=== PATIENT | female | born 1940 | race Caucasian/White ===

== ENCOUNTER 2018-10-06 06:29 | Inpatient (IN) | payer BC ==
[2018-09-18 08:53] LABS: ABSOLUTE BASOPHILS 0.1 thou/uL (0.0-0.2); ABSOLUTE EOSINOPHILS 0.2 thou/uL (0.0-0.7); ABSOLUTE LYMPHOCYTES 1.7 thou/uL (0.8-5.3); ABSOLUTE MONOCYTES 0.7 thou/uL (0.0-1.2); ABSOLUTE NEUTROPHILS 4.4 thou/uL (1.6-8.1); BASOPHILS 0.8 %; EOSINOPHILS 2.4 %; HEMATOCRIT 41.8 % (37.0-47.0); HEMOGLOBIN 14.5 gm/dL (12.0-15.0); LYMPHOCYTES 23.9 %; MCH 31.6 pg (26.0-34.0); MCHC 34.8 g/dL (28.0-37.0); MONOCYTES 10.2 %; MPV 9.6 fl. (7.2-11.1); NUCLEATED RBCS 0 /100WBC; PLATELET COUNT* 196 thou/uL (150-400); POLYS 62.7 %; RBC 4.59 mil/uL (4.20-5.00); RDW-CV 12.9 % (10.5-14.5)
[2018-09-18 09:04] LABS: APTT 25.9 Seconds (25.0-31.3); PROTIME 9.8 Seconds (9.20-11.50)
[2018-09-18 09:07] LABS: ALBUMIN 3.3 g/dL (3.4-5.0); CALCIUM 8.8 mg/dL (8.5-10.1); CREATININE 0.8 mg/dL (0.6-1.3); POTASSIUM 4.2 mmol/L (3.5-5.1); TOTAL BILIRUBIN 0.6 mg/dL (<0.1-1.0); TOTAL PROTEIN 7.1 g/dL (6.4-8.2)
[2018-09-18 11:22] LABS: ESR (SEDRATE) 15 mm/hr (0-30)
--- NOTE | 2018-09-18 14:04 | EKG ---
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: : 1940 Requested By: Eduardo Dee Order Number: [id number] Reading MD: Jadon Oswald Measurements Intervals Bourg Rate: 79 P: 69 NH: 166 QRS: -56 QRSD: 126 T: 26 QT: 381 QTc: 437 Interpretive Statements Sinus rhythm Probable left atrial enlargement Right bundle branch block No previous ECG available for comparison Electronically Signed On 09-18-2018 14:04:14 CDT by Jadon Oswald [email or web address] <ELECTRONICALLY SIGNED> By: Jadon Oswald MD, [facility] 09/18/18 1404 0914 09 Jadon Oswald MD, FACC /EPI
[2018-09-19 10:10] LABS: GLYCOHEMOGLOBIN (HGB A1C) 5.6 % (4.8-5.6)
[~2018-10-06] VITALS: Ht 165.1 cm; Wt 89.4 kg
--- NOTE | ~2018-10-06 | OP ---
[address] [address] OPERATIVE REPORT Name: MARKJJ J Room: [address] IN .R.#: [id number] Admission: 10/06/18 Attend Phys: Everardo Marsh Discharge: Date of : 42 Report #: [id number] THIS REPORT FOR: //name// CC: Adeel Francisco DICTATED BY: Eduardo Dee DO, DATE OF SERVICE: 10/06/2018 PREOPERATIVE DIAGNOSIS: Advanced degenerative joint disease, right knee. POSTOPERATIVE DIAGNOSIS: Advanced degenerative joint disease, right knee. PROCEDURE: Right total knee arthroplasty. SURGEON: Eduardo Dee DO RATTAN WORKER: Richard Sutton DO SECOND REHABILITATION SPECIALIST: Erasmo Vaca DO ESTIMATED BLOOD LOSS: 100 mL. ANTIBIOTICS: Ancef 2 grams IV preoperatively. TOURNIQUET TIME: Approximately 1 hour. COMPLICATIONS: None. DRAINS: None. ANESTHESIA: General. CONDITION OF PATIENT: Stable to PACU. ORTHOPEDIC IMPLANTS: Renetta total knee arthroplasty system: 1. Size 7 narrow cruciate-retaining femur. 2. Size D tibial baseplate. 3. An 11 mm medial congruent polyethylene spacer. 4. A 32 mm 3 peg patella. 5. Two bags of Palacos bone cement plain. CONDITION: The patient is stable to PACU. INDICATIONS FOR PROCEDURE: The patient is a very pleasant 78-year-old female [address] [address] OPERATIVE REPORT Name: JJ FLORES Room: [address] IN [facility]#: [id number] Admission: 10/06/18 Attend Phys: Everardo Marsh Discharge: Date of : 42 Report #: [id number] seen in my clinic regarding right knee pain she had for many years. She unfortunately failed conservative treatment including anti-inflammatory medications, activity modification. X-rays were obtained consistent with end-stage degenerative joint disease with correctable varus deformity. This was consistent with her exam. Due to failed conservative treatment, I discussed potential benefit of right total knee arthroplasty. I discussed the procedure, risks, benefits, complications and indications in detail with her. Risks discussed include but not limited to infection, neurovascular injury, continued or worsening pain, no improvement in symptoms, hardware failure, fracture, arthrofibrosis, need for further surgery, DVT, PE, and/or anesthesia complications. She did express understanding and wished to proceed with surgery. DESCRIPTION OF PROCEDURE: After consent was obtained, the patient was taken to the operative suite and placed in the supine position on the operating room table. She was given benefit of general anesthesia. A well-padded tourniquet was placed over the right upper thigh. Right leg was sterilely prepped and draped in usual fashion. Preoperative timeout was obtained to confirm the correct patient, procedure and operative site. Surgery began with inflation of the tourniquet to 300 mmHg. Standard anterior knee midline incision was made. Sharp dissection was taken down to the level of the capsule. A new knife was used and a medial parapatellar arthrotomy was performed. The patella was everted. She had a normal appearing joint effusion. She had severely eburnated bone throughout all 3 compartments with osteophytes throughout. At this time, a femoral drill was used to open the femoral canal. Hohmann retractors were placed throughout the procedure to protect the medial and lateral collateral ligaments. The T-handle and intramedullary perez were placed measuring 5-degree valgus cut. Extraocular 2 mm cut was taken due to preoperative extension lag. Distal femoral cut was made through the captured block. At this time, the external tibial guide was utilized and 10 mm were measured off the high lateral side with the stylus. The proximal tibial cut was then made to the captured block. Knee was taken through extension, 10 block was used to ensure adequate resection. The knee was again flexed. AP sizer was placed on the distal femur, it was measured a size 7. Two army helicopter pilot holes were drilled in 3 degrees of external rotation. The size 7, 4-in-1 cutting block was then pinned in place. Anterior and posterior condylar cuts as well as chamfer cuts were then made. Posterior osteophytes were removed with a curved osteotome and rongeur. The FAR retractor was placed, proximal tibia was then exposed. This measured a size D. The size D tibial trial was pinned in place, basing rotation off the medial third of the tibial tubercle and middle of the talus. The trial femur was placed. A size 10 spacer was placed. Knee was taken through range of motion. She had full flexion and extension with stable varus and valgus testing with equal flexion and extension gaps. The patella was everted. Posterior patellar cut was made using freehand technique. This measured size 32. Three peg holes drilled, size 32 button [place] [address] OPERATIVE REPORT Name: JJ FLORES Room: 150-1 [facility] IN [facility].#: [id number] Admission: 10/06/18 Attend Phys: Everardo Marsh Discharge: Date of : 42 Report #: [id number] taken through range of motion. The patella did track well. At this time, the trial femur and spacer were removed. The proximal tibia was opened with the drill and the punch. All trial components were removed. The knee was then thoroughly irrigated with pulsatile lavage and dried with a clean lap sponge. The final components were opened, cement was mixed, placed on the final components and exposed bone. The components were then impacted into place. Excess cement was removed. A size 12 spacer was placed. Knee was taken through extension. Axial compression was applied until the cement hardened. Once the cement hardened, trial reduction was again performed and a final size 11 spacer was chosen. This was placed on a clean tibial tray, locked in place, audible click was heard. The knee was taken through final range of motion. She had full flexion and extension with stable varus and valgus testing with equal flexion and extension gaps and good patellar tracking. The tourniquet was deflated at approximately 1 hour. Hemostasis achieved with electrocautery and direct pressure. Knee was thoroughly irrigated with pulsatile lavage, dried with clean lap sponge. The capsule was then closed with a #1 Vicryl in a [id number] fashion. Knee was again thoroughly irrigated. Subcutaneous tissue was closed with 2-0 Vicryl in an inverted interrupted fashion followed by running Monocryl stitch on the skin. This covered with Dermabond, which was allowed to dried and sterile dressing was applied. She did tolerate the procedure well without complications. She was taken to recovery room in stable condition. All needle and sponge counts correct x 2 at the end of the procedure. She will be admitted postoperatively for pain control and physical therapy. We will give appropriate DVT prophylaxis and analgesia p.r.n. I expect 2 midnight stay. By: [id number] Donis Dee DO /nt
[~2018-10-06 06:29] MED LIST: MULTIVITAMINS1 EAC7 PO; NOHOMEMEDICATIONS; NORCO 5-325 TA1 EACH PO; TRAMADOL 50 MG50 MG PO
[2018-10-06] MEDS ORDERED: LASIX 40 MG TAB40 M2 PO (07:18)
[2018-10-06 07:20] VITALS: BP 154/99
--- NOTE | 2018-10-06 12:45 | NUR ---
PATIENT TO ROOM 114 FROM SURGERY PER BED AFTER RT TOTAL KNEE REPLACEMENT. POLAR PACK IN PLACE. IV NOTED WNL. NO FLUIDS AT THIS TIME. REPORT REC'D, PER SURGERY STAFF, STATES NOTED LS CRACKLES, FLUIDS STOPPED IN PACU. WILL MONITOR. JOSÉ MIGUEL POX PLACED. O2 2L/NC. FRIEND OF PATIENT PRESENT. PATIENT NOTED SLEEPY, RESPONDS TO VERBAL/TOUCH STIM. RATES SURGICAL SITE PAIN AT 5-6/10 AT THIS TIME. LS NOTED DIM IN BASES, RESPS EVEN AND UNLABORED. +CDB. INC SPIR EDUCATION DONE, +RETURN DEMO. HOB UP TO PATIENT COMFORT. PATIENT ENC TO REST AT THIS TIME. ~TJRN
--- NOTE | 2018-10-06 15:30 | NUR ---
UP IN RECLINER W/ ASST OF PHYSICAL THERAPY. BLE ELEVATED. POLAR PACK IN PLACE. DENIES NEEDS AT THIS TIME. CALM. ~TJRN
[2018-10-06 19:30] VITALS: BP 129/68
[2018-10-07] VITALS (7 sets, daily range): BP systolic 105–161; BP diastolic 58–77
[2018-10-07 03:33] LABS: ABSOLUTE LYMPHOCYTES 1.2 thou/uL (0.8-5.3); ABSOLUTE MONOCYTES 1.1 thou/uL (0.0-1.2); BASOPHILS 0.2 %; HEMATOCRIT 36.5 % (37.0-47.0); HEMOGLOBIN 12.3 gm/dL (12.0-15.0); LYMPHOCYTES 9.3 %; MCH 30.8 pg (26.0-34.0); MCHC 33.6 g/dL (28.0-37.0); MCV 91.8 fL (80.0-100.0); MPV 10.7 fl. (7.2-11.1); NUCLEATED RBCS 0 /100WBC; PLATELET COUNT* 176 thou/uL (150-400); POLYS 82.5 %; RBC 3.98 mil/uL (4.20-5.00); RDW-CV 12.8 % (10.5-14.5); WBC 13.3 thou/uL (4.0-11.0)
[2018-10-07 03:37] LABS: CALCIUM 8.5 mg/dL (8.5-10.1); CREATININE 0.8 mg/dL (0.6-1.3); POTASSIUM 4.7 mmol/L (3.5-5.1)
--- NOTE | 2018-10-07 06:46 | NUR ---
PT SLEPT WELL OVERNIGHT, RECEIVING OXY IR AND SCHEDULED TYLENOL FOR R KNEE PAIN WITH GOOD RESULT. UP WITH GB AND WALKER, SBA TO BSC TO VOID OVERNIGHT. POLAR PACK ON AND OPERATING, KATALINA FOOT PUMP SCDS ON. LWRIST SL IV, ABX GIVEN ORDERED. AM LABS DRAWN. CPM ON PT THIS MORNING, PT TOLERATING WELL AT THIS TIME. TOLERATING REGULAR DIET AND LIQUIDS WITHOUT N/V. AOX4, ABLE TO USE CALL LITE AND MAKE NEEDS KNOWN. ROOM AIR SAT 93%, CONT PULSE OX ON OVERNIGHT.
[2018-10-07] MEDS ORDERED: DOK PLUS TABLE1 EACH PO (10:16)
[2018-10-07] MEDS ORDERED: ELIQUIS2.5 MG PO (10:43)
[2018-10-07] MEDS ORDERED: OXYCODONE HCL 55 MG PO (10:43)
[2018-10-07] MEDS ORDERED: ASPIRIN325 PO (10:57)
--- NOTE | 2018-10-07 12:03 | NUR ---
MET WITH PT AND DTR TO DISCUSS HOME SITUATION/DC PLANNING. PT LIVES WITH SPOUSE AND SON. SPOUSE WILL BE HOME WITH HER AND SON WORKS. DTR PLANS TO ASSIST PT AT DC ALSO. PT IS NORMALLY INDEPENDENT AND ACTIVE. USES NO EQUIPMENT. PT HAS A ROLLATOR WALKER THAT SHE BORROWED BUT PT HAS RECOMMENDED A FWW. CALLED AND RECEIVED APPROVAL TO DISPENSE FROM [facility]. THERAPY NOTIFIED. PT IS S/P RTKA, POSSIBLE DC LATER TODAY. DISCUSSED HH OPTIONS, SHE HAD NO PREFERENCE. SET UP [facility] HER, ALLAN/ TO COME TO TALK WITH PT TODAY. CALLED IN [place] TO [facility], IS $20/COPAY. PT TO TAKE CPM HOME THAT IS IN ROOM. WILL SEE HOW SHE DOES IN THERAPY THIS AFTERNOON. FAXED INITIAL REFERRAL TO [facility].
--- NOTE | 2018-10-07 17:10 | NUR ---
PT REMAINED ALERT AND ORIENTED. PT RESTING IN ROOM. PAIN MEDS GIVEN ORDERED. CPM IN ROOM. AUBREY HOSE ON BILAT. POLAR CARE IN PLACE. FALL RISK PRECAUTIONS IN PLACE. HOURLY ROUNDING COMPLETED. WILL CONTINUE TO MONITOR.
--- NOTE | 2018-10-08 05:19 | NUR ---
PATIENT WAS REPORTING PAIN LEVEL 8/10 AT 2028 SO I ADMINISTERED 10 MG OF OXYCODONE. SHE GOT UP TO USE THE COMMODE WITH ASSISTANCE BEFORE GOING TO BED. SHE SLEPT REMAINDER OF SHIFT AFTER 10 PM. NO NEW REPORTS OF ITCHING OR NAUSEA.
[2018-10-08 05:26] LABS: HEMOGLOBIN 13.2 gm/dL (12.0-15.0)
--- NOTE | 2018-10-08 07:11 | NUR ---
OT WILL DEFER TO P.T. AT THIS TIME. PLEASE WRITE NEW ORDERS IF INDICATED.
[2018-10-08 08:00] VITALS: BP 147/58
--- NOTE | 2018-10-08 11:53 | NUR ---
PT.TO DISCHARGE HOME TODAY WITH HOME HEALTH. FAXED 'S DISCHARGE SUMMARY AND ORTHO ORDERS TO [facility]. THERAPY TO DISPENSE FWW TO PT.PRIOR TO DISCHARGE.
--- NOTE | 2018-10-08 14:07 | NUR ---
PT.HAS FRONT WHEEL WALKER IN ROOM FROM-[facility],THAT THERAPY DISPENSED TO HER.
--- NOTE | 2018-10-08 14:13 | NUR ---
DISCHARGE NOTE - REVIEWED INSTRUCTIONS WITH PT AND DTR. NO QUESTIONS. ALL BELONGINGS SENT WITH PT. IV REMOVED.
[2018-10-08 16:00] VITALS: BP 150/64
--- NOTE | 2018-10-08 17:08 | NUR ---
DISCHARGE NOTE - REVIEWED INSTRUCTIONS WITH PT AND DTR. NO QUESTIONS. ALL BELONGINGS SENT WITH PT. IV REMOVED.
== END 2018-10-08 17:09 | disposition home health service (06) | DRG 470 ==
LOC: M.PRE 06:29 → M.ORTHSURG 06:41 → M.TBA 06:41 → M.PRE 09:53 → M.ORTHSURG 12:35 → M.PRE 14:18 → M.ORTHSURG 10-08 17:09
PROVIDERS: Family Medicine; Orthopaedic Surgery; ADMIT Internal Medicine
PROC: 0SRC0J9 Replacement of Right Knee Joint with Synthetic Substitute, Cemented, Open Approach (ICD-10-PCS; principal; 2018-10-06)
DX: M17.11 Unilateral primary osteoarthritis, right knee (principal); Z91.048 Other nonmedicinal substance allergy status; Z90.710 Acquired absence of both cervix and uterus